=== PATIENT | female | born 1980 | race Caucasian/White ===

== ENCOUNTER → 2021-01-13 03:21 | Outpatient (CLI) | payer OTHER, SELFPAY ==
[2021-01-13 18:18] LABS: SARS-CoV-2 RNA PCR Negative
== END ==
PROVIDERS: PCP Physician Assistant; Visit Provider Physician Assistant
DX: R68.89 Other general symptoms and signs (principal); Z20.822 Contact with and (suspected) exposure to COVID-19
CPT/HCPCS: C9803; U0003; U0005

== ENCOUNTER → 2021-01-22 02:44 | Outpatient (CLI) | payer OTHER, SELFPAY ==
[2021-01-22 16:55] LABS: SARS-CoV-2 RNA PCR Negative
== END ==
PROVIDERS: PCP Physician Assistant; Visit Provider Physician Assistant
DX: Z20.822 Contact with and (suspected) exposure to COVID-19 (principal)
CPT/HCPCS: C9803; U0003; U0005

== ENCOUNTER → 2021-01-29 02:42 | Outpatient (CLI) | payer OTHER, SELFPAY ==
[2021-01-29 17:37] LABS: SARS-CoV-2 RNA PCR Negative
== END ==
PROVIDERS: PCP Physician Assistant; Visit Provider Physician Assistant
DX: R68.89 Other general symptoms and signs (principal); Z20.822 Contact with and (suspected) exposure to COVID-19
CPT/HCPCS: C9803; U0003; U0005

== ENCOUNTER → 2021-02-06 06:19 | Outpatient (CLI) | payer OTHER, SELFPAY ==
[2021-02-06 17:47] LABS: SARS-CoV-2 RNA PCR Negative
== END ==
PROVIDERS: PCP Physician Assistant; Visit Provider Physician Assistant
DX: Z02.0 Encounter for examination for admission to educational institution (principal); Z20.822 Contact with and (suspected) exposure to COVID-19
CPT/HCPCS: C9803; U0003; U0005

== ENCOUNTER → 2021-02-12 02:56 | Outpatient (CLI) | payer OTHER, SELFPAY ==
[2021-02-13 16:43] LABS: SARS-CoV-2 RNA PCR Negative
== END ==
PROVIDERS: PCP Physician Assistant; Visit Provider Physician Assistant
DX: R68.89 Other general symptoms and signs (principal); Z20.822 Contact with and (suspected) exposure to COVID-19
CPT/HCPCS: C9803; U0003; U0005

== ENCOUNTER 2022-11-01 01:50 | Day surgery (SDC) | payer OTHER, SELFPAY ==
[2022-10-25 14:10] VITALS: BMI 30.2
--- NOTE | 2022-10-25 14:36 | SUR.PREOP ---
Report to the Outpatient Waiting Room, entrance under the green pavilion located off [facility], at time 0900 on date 11/01/2022. Planned Procedure Time: 1100. Time changes happen often and if your time is changed the preop area will call you the afternoon before. - You and your visitor will be asked to self-screen and do not enter if you have any COVID symptoms. - A mask is optional within the hospital at this time. Patients may have clear liquids (water, carbonated beverages, clear teas, apple juice) until 3 hours prior to surgery with a maximum of 20 ounces- 0800. - No food from midnight until time of surgery - Infants may have breast milk until 4 hours before surgery, formula 6 hours prior to surgery. - Children will be allowed to drink immediately following surgery. If applicable, please bring a bottle or sippy cup to assist with drinking. Juice, water, soda, and popsicles are readily available. For infants on formula, please bring formula the day of surgery. Pacifiers are allowed. Take the following medications with a SIP of water the morning of surgery: N/A DO NOT STOP ANY OF YOUR OTHER PRESCRIPTION MEDICATIONS PRIOR TO SURGERY ?EXCEPT THE FOLLOWING Medications to discontinue per physician N/A Please no make-up, nail somali, hairspray, perfume, deodorant, or body powder the day of surgery. No jewelry (including any body piercings) or valuables the day of surgery, leave them at home. Please take a shower or bath the night before, or the morning of, surgery with an antibacterial soap. Wear comfortable, loose fitting clothing. Children are encouraged to wear pajamas. - Jewelry must be removed prior to entering the operating room. Rings and piercings that are not removed may be cut off. - The hospital will not accept responsibility for valuables. - Please leave all valuables, including medications, at home the day of surgery. If you are going home after surgery, a licensed regional driver must drive you home. - NO public transportation without another adult if you receive anesthesia. - We recommend that an adult stay with you for 24 hours following discharge. - We also recommend that you do not drive, make important decision, drink alcoholic beverages, or take any drugs that were not prescribed by your health care provider for at least 24 hours after your discharge time. For Pediatric surgeries, we recommend two adults accompany the child home. Follow any additional instructions given to you from your surgeon. If you or anyone in your household have experienced Covid symptoms in the past week, please notify your surgeon or the nurse liaison at the phone number below for possible testing. Telephone instructions given to patient- Marla and asked if any additional questions and then verbalized understanding. Patient advised to call surgeon office or pre surgery nurse liaison [phone] if any additional questions.
--- NOTE | 2022-10-31 13:04 | PM.IMHP ---
H&P: HPI History of Present Illness Date/Time: 10/31/22 13:04 Chief Complaint: Retained IUD Narrative: Bryanna is a 42yo P2002 who presented to clinic for Mirena IUD exchange. She has a Mirena IUD in place since 03/2017 and reports that she has having more normal periods for the last 4 months. She is having more pelvic pains now too. She has a known 6cm fibroid. Does report menstrual headaches, but have improved and become less frequent. The strings were known to be missing but she wanted to try in office removal, however, it was unsuccessful. Review of Systems Constitutional: Constitutional: Denies chills, Denies fever(s) and Denies headache(s) Eyes: Eyes: Denies change in vision ENT: Denies dizziness and Denies headache(s) Cardiovascular: Cardiovascular: Denies chest pain and Denies dyspnea Respiratory: Respiratory: Denies cough and Denies dyspnea Gastrointestinal: Gastrointestinal: Denies abdominal pain and Denies change in stool character Genitourinary: Genitourinary: Denies abnormal menses, Denies pelvic pain, Denies vaginal discharge, Denies vaginal odor and Denies vaginal pruritus Neurologic: Denies dizziness and Denies headache(s) Psychiatric: Psychiatric: Denies anxiety and Denies depression PMFSH Past Medical History Medical History Encounter for removal and reinsertion of intrauterine contraceptive device Gallstones History of left heart catheterization Sexually transmissible disease Surgical History Surgical History H/O gynecological procedure mirena 2015 insertion / removal 04/20/2022 Family History Family History Mother Heart disease Diabetes mellitus Social History Social History Smoking status: Never smoker Alcohol intake: current Drinks per week: 1 Alcohol use details: 2/MONTH Substance use: never Substance use type: does not use Living arrangements: with family Occupation/Education: occupation Gender identity (if verbalized by the patient): Female Sexual Orientation (if Verbalized by the Patient): Straight or Heterosexual Spiritual care concerns: No Meds Home Medications and Allergies Home Medications Medication Instructions Recorded Confirmed Type No Home Medications 10/25/22 10/25/22 History Allergies Allergy/AdvReac Type Severity Reaction Status Date / Time acetaminophen [From Vicodin] AdvReac Mild Vomiting Verified 10/25/22 14:09 hydrocodone [From Vicodin] AdvReac Mild Vomiting Verified 10/25/22 14:09 Exam Const: General: cooperative, healthy appearing, comfortable and no acute distress Orientation/consciousness: patient oriented x3 Resp: Effort & Inspection: normal respiratory effort Cardio: Rate: regular rate GI: Inspection: normal to inspection GI Palp: No abdominal tenderness and Yes Soft to palpation : Other: deferred to OR Skin: General skin exam: normal color Neuro: General: patient oriented x3 Extrem: General: normal to inspection Psych: Appearance: grossly normal Affect: normal affect Attitude: cooperative Assessment and Plan Assessment and plan (1) IUD threads lost: Qualifiers: Encounter type: subsequent encounter Qualified Code(s): T83.32XD - Displacement of intrauterine contraceptive device, subsequent encounter Code(s): T83.32XA - Displacement of intrauterine contraceptive device, initial encounter Status: Acute Plan - In office removal was attempted but unsuccessful - Proceed with hysteroscopic IUD removal - Risks and benefits explained in detail
--- NOTE | 2022-11-01 07:03 | WPDHPUPDATE1 ---
History and Physical Update Update Date/Time: 11/01/22 07:03 History and Physical has been reviewed, including an updated exam of the patient. There are NO changes in the patient's condition. Risks, benefits, and alternatives have been discussed and questions answered. Patient agrees to proceed with hysteroscopic IUD removal.
[2022-11-01 09:17] VITALS: BP 129/73; PULSE 82; RESP 20; TEMP 36.2; O2SAT 98
[2022-11-01] MEDS: ACETAMINOPHEN 500 MG TABLET 1000 MG PO (09:21)
[2022-11-01] MEDS: LACTATED RINGERS 1,000 ML 30 ML IV CONT (09:40)
--- NOTE | 2022-11-01 10:07 | P.PNAN_ITS ---
Anes - Initial Pre Proc Eval Procedure: Operation Date: 11/01/22 11:00 Proposed Procedures p Hysteroscopy with Removal of Intrauterine Device - Alva Pedro MD Date/Time: 11/01/22 10:07 Surgeon: Alva Pedro MD Pre Op Diagnosis: Retained IUD Patient Data Age: 42 Gender: F Height: 1.57 m Weight: 78.4 kg Last Vital Signs Temp 36.2 C L 11/01/22 09:17 Pulse 82 11/01/22 09:17 Resp 20 11/01/22 09:17 BP 129/73 11/01/22 09:17 Pulse Ox 98 11/01/22 09:17 O2 Del Method Room Air 11/01/22 09:17 Allergies Allergy/AdvReac Type Severity Reaction Status Date / Time hydrocodone [From Vicodin] AdvReac Mild Vomiting Verified 11/01/22 09:17 Home Medications Medication Instructions Recorded Confirmed Type No Home Medications 10/25/22 11/01/22 History Patient hx anesthesia problems: none Family hx anesthesia problems: none Results Review: All pre-operative results and documents have been reviewed as part of the pre- operative evaluation. [facility] Past Medical History Medical History Encounter for removal and reinsertion of intrauterine contraceptive device Gallstones History of left heart catheterization Sexually transmissible disease Surgical History Surgical History H/O gynecological procedure mirena 2015 insertion / removal 04/20/2022 Family History Family History Mother Heart disease Diabetes mellitus Social History Social History Smoking status: Never smoker Alcohol intake: current Drinks per week: 1 Alcohol use details: 2/MONTH Substance use: never Substance use type: does not use Living arrangements: with family Occupation/Education: occupation Gender identity (if verbalized by the patient): Female Sexual Orientation (if Verbalized by the Patient): Straight or Heterosexual Spiritual care concerns: No Anes - Eval Final PreProcedure Day of Procedure 11/01/22 10:07 Patient weight: overweight Heart: regular rate and rhythm Lungs: clear to auscultation Airway: Mallampati scale class II Neurological: alert and oriented Last oral intake: >/= 8 hours ASA classification: II Emergent: no Anesthetic plan: proceed Anesthesia type and monitoring: general GIVS and standard monitoring Results Review: All pre-operative results and documents have been reviewed as part of the pre- operative evaluation. Informed Consent: The patient's anesthetic plan and its attendant risks and benefits were discussed with the patient/family/POA. Questions were solicited and answers provided to the satisfaction of the patient/family/POA.
[2022-11-01] MEDS: KETOROLAC 30 MG/ML VIAL (*BKC) IV PUSH (11:15)
--- NOTE | 2022-11-01 11:23 | W.PM.PROC2 ---
Procedure Note - Detailed Date of Procedure 11/01/22 Pre-op Diagnosis Retained IUD Post-op Diagnosis Same Procedure Performed Hysteroscopic IUD removal Surgeon Alva Pedro MD Anesthesia MAC Findings IUD strings not visualized protruding from cervix. IUD in the correct location, strings noted to be short and in the cervix. IUD removed in whole (discarded). Normal uterine cavity; bilateral tubal ostia visualized. Description of Procedure Bryanna was taken to the operating room where she was placed under sedation without complications. She was then prepped and draped in the usual sterile fashion in the dorsal lithotomy position with her legs in low Kip stirrups. A time-out was performed and no perioperative antibiotics were indicated. A bivalve speculum was placed within the vagina where the cervix was easily identified. The anterior lip of the cervix was grasped with a single-tooth tenaculum. The cervix was then serially dilated to allow for the hysteroscope. The hysteroscope was advanced into the uterine cavity where the IUD was easily visualized. Using hysteroscopic alligator forceps, the IUD strings were grasped and the IUD and hysteroscope was removed without issue. The hysteroscope was once again advanced into the uterine cavity where it was noted to be normal. Good hemostasis was noted. All instruments were removed from the vagina. Sponge, lap, instrument, and needle counts were correct at the end of the procedure. Patient was awoken from anesthesia and taken to recovery with plans of same-day discharge home. Estimated Blood Loss 1 IV Fluids 700 (Fluid deficit: 50cc) Pathology None sent (IUD discarded) Complications No immediate complications Condition Stable Disposition Same day [facility] Billing Surgery - Charge Forward: Surgery Billing
[2022-11-01 11:25] VITALS: BP 101/48; PULSE 84; RESP 18; O2SAT 100
[2022-11-01 11:55] VITALS: BP 105/70; PULSE 55; RESP 16
[2022-11-01] MEDS: oxyCODONE HCL (*CRX) 5 MG TAB IR PO (12:12)
[2022-11-01 12:24] VITALS: BP 111/71; PULSE 54; RESP 16
== END 2022-11-01 12:30 | disposition home or self-care (01) ==
PROVIDERS: PCP Physician Assistant; Visit Provider Obstetrics & Gynecology
PROC: 0U5B8ZZ Destruction of Endometrium, Via Natural or Artificial Opening Endoscopic (ICD-10-PCS; CPT 58563; principal; 2022-11-01 11:00)
DX: T83.32XA Displacement of intrauterine contraceptive device, initial encounter (principal); Y84.8 Other medical procedures as the cause of abnormal reaction of the patient, or of later complication, without mention of misadventure at the time of the procedure
CPT/HCPCS: 58562; A9270; J1885; J2250; J2405; J2704; J3010; J7120

== ENCOUNTER 2024-11-16 14:48 | Emergency (ER) | payer OTHER, SELFPAY ==
--- NOTE | 2024-11-16 14:55 | ED.EAR ---
HPI - Ear Problem General Chief complaint: Ear Stated complaint: R EAR Time Seen by Provider: 11/16/24 15:06 Source: patient and RN notes reviewed Mode of arrival: ambulatory Limitations: no limitations History of Present Illness HPI Narrative: 44-year-old female presents with concern for abnormal sounds in her right ear. She reports week history of he feeling like she can hear the ocean in her right ear. She denies any pain or drainage. She denies upper respiratory infection symptoms. Reports she removed wax from the ear. She denies injury to the ear. MD Complaint: ear pain Related Data Home Medications ?Medication ?Instructions ?Recorded ?Confirmed ?Last Taken ?Type levonorgestrel (Mirena) 1 device intrauterine ONCE 01/13/23 01/18/24 Unknown History apremilast 30 mg tablet (Otezla) 30 mg PO QAM AND QPM 01/18/24 01/18/24 Unknown History magnesium 200 mg tablet 200 mg PO DAILY 01/18/24 01/18/24 Unknown History testosterone 1 % (50 mg/5 gram) 1 packet transdermal DAILY 01/18/24 01/18/24 Unknown History transdermal gel packet Allergies Allergy/AdvReac Type Severity Reaction Status Date / Time hydrocodone (From Vicodin) AdvReac Mild Vomiting Verified 11/16/24 15:12 Review of Systems Review of Systems: CONSTITUTIONAL: Denies malaise, chills, sweats, or fever. EYES: Denies visual changes, redness, or discharge. ENT: Denies rhinorrhea, congestion, sinus pain, and sore throat. Reports abnormal sound of the right ear. Denies pain or drainage CARDIOVASCULAR: Denies chest pain, palpitations, or edema. RESPIRATORY: Denies cough. Denies dyspnea. GASTROINTESTINAL: Denies abdominal pain, nausea, vomiting, diarrhea SKIN: Denies rash or itching. MUSCULOSKELETAL: Denies myalgia. NEUROLOGIC: Denies headache. All systems reviewed & are unremarkable except as noted in HPI and below PMFSH Past Medical History Medical History Encounter for removal and reinsertion of intrauterine contraceptive device Gallstones History of left heart catheterization Sexually transmissible disease Surgical History Surgical History H/O gynecological procedure 11/30/22 Mirena IUD insertion mirena 2015 insertion / removal 10/23/2022 Family History Family History Mother Heart disease Diabetes mellitus Social History Social History Smoking status: Never smoker Alcohol intake: current Drinks per week: 1 Alcohol use details: 2/MONTH Substance use: never Substance use type: does not use Lack of Transportation: No Lack of Food: Never True Current Housing: I Have Housing Concerned About Future Housing: No Difficulty Paying Gas/Electric Bills: No Difficulty Paying for Meds: No Currently Unemployed: No Education: Decline to Answer Difficulty w/ Childcare or Family Care: Decline to Answer Living arrangements: with family Occupation/Education: occupation Gender identity (if verbalized by the patient): Female Sexual Orientation (if Verbalized by the Patient): Straight or Heterosexual Spiritual care concerns: No Comments At time of signature, agree with nursing past medical, surgical, social and family history. There is no relevant family history pertinent to the presenting complaint Exam Narrative: GENERAL: Well-appearing, well-nourished, and in no acute distress. HEAD: Normocephalic EYES: PERRLA, conjunctivae clear ENT: Nares clear, turbinates edematous, clear discharge. Mucous membranes moist. TM pearly weaver with sharp light reflex bilaterally; no tragal tenderness, EAC unremarkable. No post or pre-auricular erythema, induration, or warmth noted. Oropharynx not erythematous without lesions. Tonsils not enlarged and without exudate, no drooling, no hoarseness, no trismus, uvula midline. NECK: Supple. No lymphadenopathy CHEST: Clear to auscultation, breath sounds equal. No wheezing, rhonchi, rales, or stridor. No respiratory distress, speaks in full sentences. HEART: Regular rate and rhythm. No murmur heard. SKIN: Warm, dry, no rash. NEURO: Alert and oriented x3. PSYCH: Normal mood and affect Course Course Emergency Course: Patient is aware of diagnosis, understands and agrees to treatment plan. Anticipatory guidance given. Patient agrees to follow-up as directed and is aware of reasons to seek care at the emergency department. Portions of this record may have been created with voice recognition software Level of Care: Express Care Visit Vital Signs Vital signs: Reviewed. Medical Decision Making MDM Narrative Medical decision making narrative: I evaluated this in the [facility] care. History is obtained from patient who is an independent historian and physical exam was performed.? Available medical records were reviewed. ? Exam findings and relevant testing show no acute concerns or changes; patient is non-toxic appearing and is in no distress. Differential diagnosis considered: Harvey virus, strep pharyngitis, allergic rhinitis, upper respiratory tract infection, sinusitis, rhinosinusitis, nasopharyngitis. viral pharyngitis, otitis media, otitis externa, otitis effusion, pre/post auricular cellulitis, mastoiditis, cerumen impaction, foreign body. Exam findings show no acute concerns or changes; patient is non-toxic appearing and is in no distress. Patient is appropriate for outpatient treatment and follow-up. ? Differential diagnosis and treatment plan were discussed with the patient. Patient agrees with discussion and after shared medical decision making agrees with plan of care. All questions were answered to the patient's satisfaction. Patient is appropriate for outpatient treatment and follow-up. Critical Care Time Critical Care Time Critical Care Time: No Discharge Plan Discharge Clinical Impression: Ear noise/buzzing Patient Disposition: Home Condition: Stable Instructions: General Patient Instructions Additional Instructions: 1) Please follow-up with your primary care doctor or ENT as needed if her symptoms do not improve. 2) If you have any urgent concerns please go to the ER. 3) Please take medications as prescribed and continue taking your home medications as usual. Patient Language: Chilean Prescriptions: New pseudoephedrine HCl [12 Hour Decongestant] 120 mg tablet extended release 120 mg PO Q12H PRN (Reason: nasal congestion) Qty: 20 0RF fluticasone propionate [Flonase Allergy Relief] 50 mcg/actuation spray,suspension 2 spray NASAL DAILY 14 Days Qty: 15.8 0RF Rx Instructions: administer into each nostril No Action Mirena 21 mcg/24 hours (8 yrs) 52 mg intrauterine device 1 device intrauterine ONCE Rx Instructions: as a single dose magnesium 200 mg tablet 200 mg PO DAILY Otezla 30 mg tablet 30 mg PO QAM AND QPM testosterone 1 % (50 mg/5 gram) gel in packet 1 packet transdermal DAILY Follow-up/Referrals: Janine,Trung Tyler PA-C [Primary Care Provider] - [place],Willis Tejada MD [Non-Staff] - Time of Disposition: 15:12
[2024-11-16 14:57] VITALS: BP 108/80; PULSE 90; RESP 16; TEMP 36.6; O2SAT 99
== END 2024-11-16 15:18 | disposition home or self-care (01) ==
PROVIDERS: Emergency Provider Nurse Practitioner; PCP Physician Assistant
DX: H93.11 Tinnitus, right ear (principal)
CPT/HCPCS: 99213; G0463